=== PATIENT | female | born 1980 | race Caucasian/White ===

== ENCOUNTER 2019-02-25 06:50 | Day surgery (SDC) | payer OTHER ==
[2019-02-25] MEDS ORDERED: Sodium Chloride 0.9% 10 ML Syringe FLUSH PRN (07:00)
[2019-02-25] MEDS ORDERED: Lactated Ringers 1,000 ML IV SCH (07:00)
[2019-02-25] MEDS ORDERED: EPINEPHrine 1:10,000 1 MG/10 ML Syringe ONE (07:01)
[2019-02-25] MEDS ORDERED: Midazolam 1 MG/ML 2 ML SDV ONE (07:14)
[2019-02-25] MEDS ORDERED: Propofol 200 MG/20 ML SDV ONE (07:14)
[2019-02-25] MEDS ORDERED: Ketamine 200 MG/20 ML MDV ONE (07:14)
[2019-02-25] MEDS ORDERED: Midazolam 1 MG/ML 2 ML SDV IV ONE (08:14)
[2019-02-25] MEDS ORDERED: Propofol 200 MG/20 ML SDV IV ONE (08:14)
[2019-02-25] MEDS ORDERED: Ketamine 200 MG/20 ML MDV IV ONE (08:14)
--- NOTE | 2019-02-25 09:02 | PCM.OPNOTE ---
- General Post-Op/Procedure Note Date of Surgery/Procedure: 02/25/19 Operative Procedure(s): Upper and lower GI endoscopy. Biopsies performed at the gastroesophageal junction. Findings: Evidence for reflux esophagitis and question Omalley's esophagitis. Biopsies were taken from the gastroesophageal junction. Negative colonoscopy. Pre Op Diagnosis: Gastroesophageal reflux esophagitis. Question Omalley's esophagitis. Post-Op Diagnosis: As above. Anesthesia Technique: MAC Primary Surgeon: Abhijeet Jacob Condition: Good Free Text/Narrative:: INFORMED CONSENT: Patient is here today for elective upper GI endoscopy. All aspects of this procedure have been discussed with the patient. All possible complications also, including possibility of perforation, infection, pain, bleeding, numbness of the throat, swallowing difficulty and unknown complications. In the event of perforation the patient may need surgical exploration to repair the defect. The patient understands fully well. Patient did not have any further questions for me at the end of my interview. The patient wishes for me to proceed. INSTRUMENT USED: Video gastroscope ANESTHESIA: [MAC] ASA CLASSIFICATION: [1] PROCEDURE PERFORMED: [Upper gastrointestinal endoscopy and biopsies.] PHARYNX: Normal. ESOPHAGUS: Normal. Proximal: Normal. Middle: Normal. Lower: Normal. A 5 cm hiatal hernia with evidence of reflux esophagitis noted. GE Junction: Inflammation noted. Evidence of reflux esophagitis. Biopsies were taken from this area.. STOMACH: Normal. Cardia: Normal. Fundus: Normal. Lesser Curvature: Normal. Greater Curvature: Normal. Antrum: Normal. Pylorus: Normal. DUODENUM: Normal. First Part: Normal. Second Part: Normal. Third Part: Normal. RETROFLEXION: Normal. BIOPSY: None. TOLERANCE: Excellent. COMPLICATIONS: None. Evidence for gastroesophageal reflux, question Omalley's esophagitis. 5 cm hiatal hernia noted. INFORMED CONSENT: Patient is here today for elective colonoscopy. All aspects of this procedure have been discussed with the patient. All possible complications also, including possibility of perforation, infection, pain, bleeding and unknown complications. In the event of perforation patient may need to have abdominal exploration, colon resection, colostomy and even was discussed. Anesthetic complications were handled by anesthesia department. The patient understands fully well. Patient did not have any further questions for me at the end of my interview. The patient wishes for me to proceed. PREOPERATIVE DIAGNOSIS/INDICATIONS: [Previous history of polyps. Second degree relative with colon carcinoma.] POSTOPERATIVE DIAGNOSIS: [Normal.] INSTRUMENT USED: Olympus videocolonoscope. ASA CLASSIFICATION: [2] ANESTHESIA: Continuous EKG, oximetry and intermittent blood pressure and respiratory monitoring were performed throughout the procedure. IV Versed and Fentanyl were administered. PROCEDURE PERFORMED: Colonoscopy POSITIONS OF PATIENT: Left lateral. RECTUM: Normal. SIGMOID COLON: Normal. DESCENDING COLON: Normal. SPLENIC FLEXURE: Normal. TRANSVERSE COLON: Normal. HEPATIC FLEXURE: Normal. ASCENDING COLON: Normal. CECUM: Normal. ILEOCECAL VALVE: Normal. BIOPSY: None. TOLERANCE: Excellent. COMPLICATIONS: None.
[2019-02-25 10:27] VITALS: BP 102/67
== END 2019-02-25 10:40 | disposition home or self-care (01) ==
LOC: KA.SDS 06:50
PROVIDERS: ATTEND Family Medicine
DX: Z12.11 Encounter for screening for malignant neoplasm of colon (principal); K21.0 Gastro-esophageal reflux disease with esophagitis; K44.9 Diaphragmatic hernia without obstruction or gangrene; Z88.5 Allergy status to narcotic agent; Z88.8 Allergy status to other drugs, medicaments and biological substances; Z86.010 Personal history of colon polyps; Z79.899 Other long term (current) drug therapy
CPT/HCPCS: 00813; 81025; J2250; J2704; J7120

== ENCOUNTER 2022-01-03 07:44 | Day surgery (SDC) | payer BC, OTHER ==
[2022-01-03] MEDS ORDERED: Sodium Chloride 0.9% 10 ML Syringe FLUSH PRN (08:00)
[2022-01-03] MEDS ORDERED: Lactated Ringers 1,000 ML IV SCH (08:00)
[2022-01-03] MEDS ORDERED: Midazolam 1 MG/ML 2 ML SDV ONE (08:57)
[2022-01-03] MEDS ORDERED: Glycopyrrolate 0.2 MG/ML SDV ONE (08:57)
[2022-01-03] MEDS ORDERED: Propofol 200 MG/20 ML SDV ONE (08:57)
[2022-01-03] MEDS ORDERED: Lidocaine 2% 5 ML SDV ONE (08:57)
[2022-01-03 13:11] VITALS: PULSE 90
[2022-01-03 13:12] VITALS: BP 109/69
== END 2022-01-03 12:45 | disposition home or self-care (01) ==
LOC: KA.SDS 07:44
PROVIDERS: ATTEND Family Medicine
DX: Z12.11 Encounter for screening for malignant neoplasm of colon (principal); K64.0 First degree hemorrhoids; K31.89 Other diseases of stomach and duodenum; G43.109 Migraine with aura, not intractable, without status migrainosus; K21.00 Gastro-esophageal reflux disease with esophagitis, without bleeding; L70.0 Acne vulgaris; F17.210 Nicotine dependence, cigarettes, uncomplicated; Z79.899 Other long term (current) drug therapy; Z88.8 Allergy status to other drugs, medicaments and biological substances; Z88.5 Allergy status to narcotic agent; Z98.890 Other specified postprocedural states; Z80.0 Family history of malignant neoplasm of digestive organs
CPT/HCPCS: 00813; J2250; J2704; J3490; J7120